=== PATIENT | female | born 1995 | race Two or more races ===

== ENCOUNTER 2020-07-11 14:48 | Emergency (ER) | payer MEDICAID ==
[~2020-07-11] VITALS: Ht 157.5 cm; Wt 74.8 kg
[2020-07-11 16:18] VITALS: BP 130/70
--- NOTE | 2020-07-11 16:19 | NUR ---
Patient reported to the ER from doctor's office for further evaluation. Patient reported that she had a miscarriage on Jul 08, had a US today then sent over to ER. Has mild pain to lower back. No adverse medical issues. 1st miscarriage. Has a 6 year old son. ANNALISE
[2020-07-11 17:06] LABS: APPEARANCE,URINE SLIGHTLY CLOUDY; BILIRUBIN, URINE NEGATIVE (NEGATIVE); GLUCOSE, URINE (UA) NEGATIVE (NEGATIVE); KETONES,URINE NEGATIVE (NEGATIVE); LEUKOCYTE ESTERASE ,URINE 3+ (NEGATIVE); NITRITE,URINE NEGATIVE (NEGATIVE); PH,URINE 7 (4.5-8.0); PROTEIN,URINE 1+ (NEGATIVE); UROBILINOGEN,URINE NORMAL MG/DL (0.0-1.0)
[2020-07-11 17:07] LABS: BASOPHILS % (AUTO) 1.4 % (0.0-2.0); EOSINOPHILS % (AUTO) 0.7 % (0.0-3.0); HEMATOCRIT 39.4 % (37.0-47.0); HEMOGLOBIN 12.6 G/DL (12.0-16.0); LYMPHOCYTES % (AUTO) 30.8 % (20.0-45.0); MEAN CORPUSCULAR VOLUME 90 FL (80-99); MONOCYTES % (AUTO) 5.3 % (1.0-10.0); NEUTROPHILS % (AUTO) 61.8 % (45.0-75.0); PLATELET COUNT 242 K/UL (150-450); RED BLOOD COUNT 4.36 M/UL (4.20-5.40); WHITE BLOOD COUNT 6.7 K/UL (4.8-10.8)
[2020-07-11 17:09] LABS: COLOR,URINE YELLOW
--- NOTE | 2020-07-11 17:14 | Diagnostic Imaging Report ---
Indication: Positive test, heavy vaginal bleeding, current test pending Technique: Transabdominal and transvaginal images of the pelvis. Doppler interrogation of the ovaries Comparison: none Findings: Uterus measures 13.1 cm in length by 4.9 cm AP. The endometrium measures 14 mm thick. No intrauterine demonstrated. The endometrium is slightly heterogeneous with a few hypoechoic areas. No myometrial abnormality. The ovaries are normal in size and configuration and demonstrate normal Doppler flow. There is a small amount of free cul-de-sac fluid Impression: No intrauterine demonstrated. This may indicate recent spontaneous , given stated clinical history. However, the possibility of very early or ectopic should also be considered..
[2020-07-11 17:15] LABS: ANION GAP 9 mmol/L (5-15); BLOOD UREA NITROGEN 11 mg/dL (7-18); CALCIUM 9.1 MG/DL (8.5-10.1); CARBON DIOXIDE 26 MMOL/L (21-32); CHLORIDE 104 MMOL/L (98-107); CREATININE 0.7 MG/DL (0.55-1.30); POTASSIUM 3.4 MMOL/L (3.5-5.1); SODIUM 139 MMOL/L (136-145)
[2020-07-11 17:20] LABS: ALANINE AMINOTRANSFERASE 16 U/L (12-78); ALBUMIN 4.2 G/DL (3.4-5.0); ALBUMIN/GLOBULIN RATIO 1.3 (1.0-2.7); ALKALINE PHOSPHATASE 63 U/L (46-116); ASPARTATE AMINO TRANSFERASE 13 U/L (15-37); BILIRUBIN,TOTAL 0.1 MG/DL (0.2-1.0)
--- NOTE | 2020-07-11 17:36 | Emergency Room Report ---
History of Present Illness General Chief Complaint: Female Urogenital Problems Source: Patient Present Illness HPI 24-year-old female who is G2, P1 here complaining of 2 days of heavy vaginal bleeding and clotting. Patient reports that she has history of having irregular menstruation and did not know that she was as she had her menstruation twice this past month. She reports that her menstruation started on June 04, 2020 however she started seeing tissue passing and clotting which she realizes could be a miscarriage. Denies any heavy lifting or trauma to the vaginal area. Denies any headache and dizziness, diffuse abdominal pain, nausea vomiting, chest pain or shortness of breath. Complains of lower back pain at this time. Reports that she lifts heavy objects at work. Denies urinary symptoms. Appears to be stable, with stable vital signs. Denies tobacco smoke, drug use, alcohol intake. Does not know the number of weeks of her . Allergies: Coded Allergies: No Known Allergies (Unverified , 07/11/20) COVID-19 Screening Contact w/high risk pt: No Experienced COVID-19 symptoms?: No COVID-19 Testing performed [employer]: No Patient History Past Medical History: see triage record Past Surgical History: none Pertinent Family History: none Last Menstrual Period: 05/26/20 Now: Yes Immunizations: UTD Reviewed Nursing Documentation: PMH: Agreed; PSxH: Agreed Nursing Documentation-PM Past Medical History: No Stated History Review of Systems All Other Systems: negative except mentioned in HPI Physical Exam Vital Signs Date Time Temp Pulse Resp B/P (MAP) Pulse Ox O2 Delivery O2 Flow Rate FiO2 07/11/20 16:18 98.1 68 18 130/70 (90) 98 07/11/20 16:46 Room Air Sp02 EP Interpretation: reviewed, normal General Appearance: no apparent distress, alert, GCS 15, non-toxic Head: normocephalic, atraumatic Eyes: bilateral eye normal inspection, bilateral eye PERRL ENT: hearing grossly normal, normal pharynx, no angioedema, normal voice Neck: full range of motion, supple/symm/no masses Respiratory: chest non-tender, lungs clear, normal breath sounds, no rhonchi, no respiratory distress, no retraction, speaking full sentences Cardiovascular #1: regular rate, rhythm, no edema, no murmur Cardiovascular #2: 2+ carotid (R), 2+ carotid (L), 2+ radial (R), 2+ radial (L), 2+ dorsalis pedis (R), 2+ dorsalis pedis (L) Gastrointestinal: non tender, soft, no mass Rectal: deferred Genitourinary: no CVA tenderness Musculoskeletal: back normal Neurologic: alert, motor strength/tone normal, oriented x3, sensory intact, responsive, speech normal Psychiatric: judgement/insight normal, memory normal, mood/affect normal, no suicidal/homicidal ideation Skin: no rash Lymphatic: no adenopathy Medical Decision Making PA Attestation All diagnoses and treatment plans were reviewed and discussed with my supervising physician Dr. Knight Diagnostic Impression: Primary Impression: Vaginal bleeding during Additional Impression: UTI (urinary tract infection) during ER Course 24-year-old female who is G2, P1 here complaining of 2 days of heavy vaginal bleeding and clotting. Patient reports that she has history of having irregular menstruation and did not know that she was as she had her menstruation twice this past month. She reports that her menstruation started on June 04, 2020 however she started seeing tissue passing and clotting which she realizes could be a miscarriage. Denies any heavy lifting or trauma to the vaginal area. Denies any headache and dizziness, diffuse abdominal pain, nausea vomiting, chest pain or shortness of breath. Complains of lower back pain at this time. Reports that she lifts heavy objects at work. Denies urinary symptoms. Appears to be stable, with stable vital signs. Denies tobacco smoke, drug use, alcohol intake. Does not know the number of weeks of her . Ddx considered but are not limited to: Threatened , spontaneous , ectopic , vaginal bleeding , UTI, pyelonephritis, urinary incontinence, prolapsed bladder Vital signs: are WNL, pt. is afebrile H&PE are most consistent with: Vaginal bleeding spontaneous , UTI urine ORDERS: UA, urine cx, hCG quantitative, CBC, CMP, OB ultrasound, Keflex ED INTERVENTIONS: None required at this time. Patient was provided with a copy of lab results as ultrasound to present to [facility] tomorrow. Patient was advised to return to emergency room worsening symptoms. DISCHARGE: At this time pt. is stable for d/c to home. Will provide printed patient care instructions, and any necessary prescriptions. Care plan and follow up instructions have been discussed with the patient prior to discharge. CT/MRI/US Diagnostic Results CT/MRI/US Diagnostic Results : Imaging Test Ordered: OB ultrasound Impression Findings: Uterus measures 13.1 cm in length by 4.9 cm AP. The endometrium measures 14 mm thick. No intrauterine demonstrated. The endometrium is slightly heterogeneous with a few hypoechoic areas. No myometrial abnormality. The ovaries are normal in size and configuration and demonstrate normal Doppler flow. There is a small amount of free cul-de-sac fluid Impression: No intrauterine demonstrated. This may indicate recent spontaneous , given stated clinical history. However, the possibility of very early or ectopic should also be considered.. Last Vital Signs Date Time Temp Pulse Resp B/P (MAP) Pulse Ox O2 Delivery O2 Flow Rate FiO2 07/11/20 16:46 Room Air 07/11/20 16:18 98.1 68 18 130/70 (90) 98 Disposition: HOME, SELF-CARE Condition: Stable Scripts Cephalexin* (KEFLEX*) 500 Mg Capsule 500 MG ORAL EVERY 12 HOURS for 7 Days, #14 CAP 0 Refills Prov: Jaydon Encinas 07/11/20 Referrals: NON PHYSICIAN (PCP) Patient Instructions: and Urinary Tract Infection, Vaginal Bleeding During , First Trimester Additional Instructions: Follow-up with [facility] in 24 to 48 hours, if worsening symptoms return to the emergency room Jaydon Encinas Jul 11, 2020 17:36
[2020-07-11] MEDS ORDERED: CEPHALEXIN500 MG ORAL (17:37)
--- NOTE | 2020-07-11 17:42 | NUR ---
pt ready for dc, waiting for type/cross blood result per primary md request
--- NOTE | 2020-07-11 18:30 | NUR ---
Patient requested to have the IV out and is refusing CT. informed
== END 2020-07-11 18:30 | disposition home or self-care (01) ==
LOC: EMR 15:13
DX: O46.90 Antepartum hemorrhage, unspecified, unspecified trimester (principal); O23.40 Unspecified infection of urinary tract in pregnancy, unspecified trimester; Z3A.00 Weeks of gestation of pregnancy not specified; M54.5 Low back pain
CPT/HCPCS: 36415; 76801; 76817; 80053; 81003; 84702; 85025; 86850; 86900; 86901; Z7502; 99284